=== PATIENT | female | born 1965 | race American Indian/Alaskan Native ===

== ENCOUNTER 2016-04-01 08:43 | Outpatient (CLI) | payer OTHER ==
--- NOTE | 2016-04-01 10:46 | Ultrasound Report ---
ABDOMINAL ULTRASOUND: 04/01/16 08:43:00 CLINICAL: Left flank pain. FINDINGS: High-resolution ultrasound demonstrated a normal size liver with normal contour. No liver mass. Normal hepatic vasculature and inferior vena cava. Normal gallbladder and bile ducts. The gall bladder wall measured 2.0 mm in thickness. The common bile duct measured 5.0 mm mm diameter. The pancreas was well imaged and normal. Normal abdominal aorta. A normal spleen measured 7.9cm. Normal kidneys with normal echogenicity and normal non-dilated renal collecting systems and ureters. The right kidney measured 9.2 x 3.5 x 5.6cm. The left kidney measured 9.8 x 5.3 x 4.5cm. No renal mass or calculus. No ascites or mass. IMPRESSION: Normal study. No urinary calculus and no explanation for left flank pain.
== END 2016-04-01 08:44 | disposition home or self-care (01) ==
LOC: SPVWC 08:43
PROVIDERS: ATTEND Internal Medicine
DX: R10.12 Left upper quadrant pain (principal)
CPT/HCPCS: 76700

== ENCOUNTER 2016-05-22 09:05 | Outpatient (CLI) | payer OTHER ==
--- NOTE | 2016-05-22 12:20 | Cat Scan Report ---
CT scan of abdomen and pelvis with IV contrast: History: Constipation, left lower quadrant pain. Abdominal bloating. Findings: Normal lung bases. No pleural pericardial effusion. Normal liver, pancreas and gallbladder. Calcified granuloma spleen. Normal adrenals kidney parenchyma and bladder. No free intraperitoneal fluid or air. No evidence of adenopathy. Normal aorta. Normal appendix. Gaseous colon with moderate volume stool in colon. No evidence of diverticulitis. Impression: Calcified granuloma spleen. Gaseous colon with moderate volume stool in colon.
--- NOTE | 2016-05-22 14:09 | Mammography Report ---
BILATERAL DIGITAL SCREENING MAMMOGRAM with CAD: 05/22/16 09:05:00 CLINICAL: Routine screening. COMPARISON:05/21/15 FINDINGS: The breasts are heterogeneously dense, which may obscure small masses. No mass, architectural distortion or suspicious calcifications. IMPRESSION: No mammographic evidence of malignancy. BI-RADS CATEGORY: 1 - - Negative RECOMMENDATION: Routine mammographic screening in one year. COMMENT: Patient follow-up letters are generated by our [employer] application.
== END 2016-05-22 09:06 | disposition home or self-care (01) ==
LOC: SPVWC 09:05
PROVIDERS: ATTEND Internal Medicine
DX: Z12.31 Encounter for screening mammogram for malignant neoplasm of breast (principal); K59.00 Constipation, unspecified; R14.0 Abdominal distension (gaseous); R10.32 Left lower quadrant pain; R14.3 Flatulence
CPT/HCPCS: 74177; G0202; Q9967; 77067